=== PATIENT | female | born 1970 | race Two or more races ===

== ENCOUNTER 2020-04-22 16:38 | Emergency (ER) | payer OTHER ==
[~2020-04-22] VITALS: Ht 160 cm; Wt 75.3 kg
[2020-04-22 16:49] VITALS: BP 131/46
--- NOTE | 2020-04-22 18:28 | NUR ---
jadon wrap and ice pack applied cms intact post application
== END 2020-04-22 18:30 | disposition home or self-care (01) ==
LOC: MERGE 16:38 → ED 18:15
DX: S40.811A Abrasion of right upper arm, initial encounter (principal); S80.211A Abrasion, right knee, initial encounter; W19.XXXA Unspecified fall, initial encounter; Y93.89 Activity, other specified; Y92.69 Other specified industrial and construction area as the place of occurrence of the external cause; Y99.0 Civilian activity done for income or pay
CPT/HCPCS: 99284